=== PATIENT | male | born 1940 | race African-American/Black ===

== ENCOUNTER 2022-03-20 09:44 | Inpatient (IN) | payer MEDICARE, BC, OTHER ==
[~2022-03-20] VITALS: Ht 188 cm; Wt 88.0 kg
[2022-03-20] MEDS ORDERED: SODIUM CHLORIDE 0.9% 1000ML BAG (SEPSIS BOLUS) IV ONE (12:00)
[2022-03-20 13:02] LABS: BASOPHILS % 0.2 % (0.0-2.0); EOSINOPHILS % 0.2 % (0.0-5.0); HEMATOCRIT. 35.9 % (42.0-52.0); HEMOGLOBIN. 12.3 g/dL (14.0-18.0); LYMPHOCYTES % 9.6 % (20.0-50.0); MEAN CORPUSCULAR HEMOGLOBIN 30.5 pg (28.0-32.0); MEAN CORPUSCULAR VOLUME 88.9 fL (80.0-94.0); MEAN PLATELET VOLUME 9.4 fl (7.4-10.4); PLATELET 165 x1000/uL (130-400); RED BLOOD CELL COUNT 4.04 mill/uL (4.7-6.1); RED CELL DISTRIBUTION WIDTH 14.8 % (11.6-14.6)
[2022-03-20 13:51] LABS: INR 1.1; PROTHROMBIN TIME 11.7 sec (9.6-11.0)
[2022-03-20] MEDS ORDERED: ASPIRIN 81MG TABLET PO ONE (14:00)
[2022-03-20 15:55] LABS: CHLORIDE 107 mEq/L (98-107)
[2022-03-20] MEDS ORDERED: POTASSIUM CHLORIDE 20MEQ TABLET SR PO ONE (16:15)
[2022-03-20] MEDS ORDERED: ACETAMINOPHEN 325MG TABLET PO PRN (17:00)
[2022-03-20] MEDS ORDERED: ONDANSETRON HCL 4MG/2ML INJ IV PRN (17:00)
[2022-03-20] MEDS ORDERED: MAGNESIUM/ALUMINUM HYDROXIDE/SIMETHICONE 30ML UDC PO PRN (17:00)
[2022-03-20] MEDS ORDERED: CLONIDINE 0.1MG TABLET PO PRN (17:00)
[2022-03-20] MEDS ORDERED: HYDROCODONE/ACETAMINOPHEN 5/325MG TABLET PO PRN (17:00)
[2022-03-20 17:41] VITALS: BP 152/73
[2022-03-20] MEDS: ENOXAPARIN 40MG/0.4ML SYR SUBCUT SCH (18:00)
[2022-03-20] MEDS ORDERED: NALOXONE HCL 0.4MG/ML VIAL IV PRN (18:00)
[2022-03-20 18:02] VITALS: BP 152/73
[2022-03-20] MEDS ORDERED: AMLO10TA80 MT (18:07)
[2022-03-20] MEDS ORDERED: PRIM50TA5 MT (18:07)
[2022-03-20] MEDS ORDERED: MEMA1TAB2 PO (18:07)
[2022-03-20] MEDS ORDERED: RIVA1PAT9 TP (18:07)
[2022-03-20] MEDS ORDERED: QUET25TA36 MT (18:07)
[2022-03-20] MEDS ORDERED: CHOL400D7 MT (18:07)
[2022-03-20] MEDS ORDERED: TAMS-11 MT (18:07)
[2022-03-20] MEDS ORDERED: ATOR40TA70 MT (18:07)
[2022-03-20 19:16] LABS: CLARITY URINE CLEAR (CLEAR); COLOR URINE YELLOW (YELLOW); KETONES URINE 1+ (NEGATIVE); LEUKOCYTE ESTERASE URINE NEGATIVE (NEGATIVE); NITRITE URINE NEGATIVE (NEGATIVE); OCCULT BLOOD URINE 2+ (NEGATIVE); PH URINE 6.5 (4.5-8.0); PROTEIN URINE 1+ (NEGATIVE)
[2022-03-20 19:34] LABS: *AMPHETAMINES SCREEN URINE NEGATIVE (NEGATIVE); *BARBITURATES SCREEN URINE PRESUMTIVE POSITIVE (NEGATIVE); *BENZODIAZEPINES SCREEN URINE NEGATIVE (NEGATIVE); *COCAINE SCREEN URINE NEGATIVE (NEGATIVE); CANNABINOID URINE SCREEN NEGATIVE (NEGATIVE); METHADONE URINE SCREEN NEGATIVE (NEGATIVE); OPIATES URINE SCREEN NEGATIVE (NEGATIVE); PHENCYCLIDINE URINE SCREEN NEGATIVE (NEGATIVE)
[2022-03-20 20:00] VITALS: BP 141/69
[2022-03-21] VITALS (7 sets, daily range): BP systolic 116–156; BP diastolic 55–72
[2022-03-21 05:51] LABS: BASOPHILS % 0.2 % (0.0-2.0); HEMATOCRIT. 28.2 % (42.0-52.0); HEMOGLOBIN. 9.7 g/dL (14.0-18.0); LYMPHOCYTES % 14.7 % (20.0-50.0); MEAN CORPUSCULAR HEMOGLOBIN 30.2 pg (28.0-32.0); MEAN CORPUSCULAR VOLUME 87.9 fL (80.0-94.0); MEAN PLATELET VOLUME 9.2 fl (7.4-10.4); MONOCYTES % 10.5 % (2.0-8.0); NEUTROPHILS % 72.6 % (40.0-76.0); PLATELET 127 x1000/uL (130-400); RED BLOOD CELL COUNT 3.21 mill/uL (4.7-6.1); RED CELL DISTRIBUTION WIDTH 14.4 % (11.6-14.6)
[2022-03-21 05:58] LABS: CHLORIDE 108 mEq/L (98-107)
[2022-03-21] MEDS ORDERED: POTASSIUM CHLORIDE 20MEQ TABLET SR PO NR ×3 (06:15→16:00)
[2022-03-21] MEDS ORDERED: POTASSIUM CHLORIDE INJ 40 MEQ in DEXT 5% WATER 250 ML IV ONE (06:15)
[2022-03-21 06:21] LABS: HDL CHOLESTEROL 57 mg/dL (40-59); LDL CHOLESTEROL 43 mg/dL (5-100); PHOSPHORUS 2.6 mg/dL (2.5-4.9); T4 FREE 1.47 ng/dL (0.76-1.46)
[2022-03-21] MEDS ORDERED: KCL 20MEQ/100ML X 2 FOR TOTAL KCL 40MEQ/200ML IV SCH (06:30)
[2022-03-21] MEDS: OMEPRAZOLE 20MG CAPSULE EXTENDED RELEASE PO SCH (07:04)
[2022-03-21] MEDS: SODIUM CHLORIDE 0.45% 1,000 ML IV SCH ×2 (14:12→23:51)
[2022-03-21 16:20] LABS: VITAMIN B12 SERUM 431 pg/mL (211-911)
[2022-03-21] MEDS: ENOXAPARIN 40MG/0.4ML SYR SUBCUT SCH (16:23)
[2022-03-21] MEDS ORDERED: VANCOMYCIN 1,750 MG in DEXT 5% WATER 500 ML IV SCH (21:00)
[2022-03-22 00:12] VITALS: BP 157/77
[2022-03-22 04:12] VITALS: BP 166/113
[2022-03-22 06:22] LABS: BASOPHILS % 0.2 % (0.0-2.0); EOSINOPHILS % 1.9 % (0.0-5.0); HEMATOCRIT. 33.2 % (42.0-52.0); HEMOGLOBIN. 11.2 g/dL (14.0-18.0); LYMPHOCYTES % 12.8 % (20.0-50.0); MEAN CORPUSCULAR VOLUME 89.5 fL (80.0-94.0); MEAN PLATELET VOLUME 9.2 fl (7.4-10.4); MONOCYTES % 9.9 % (2.0-8.0); NEUTROPHILS % 75.2 % (40.0-76.0); PLATELET 149 x1000/uL (130-400); RED BLOOD CELL COUNT 3.71 mill/uL (4.7-6.1); RED CELL DISTRIBUTION WIDTH 14.5 % (11.6-14.6)
[2022-03-22] MEDS: OMEPRAZOLE 20MG CAPSULE EXTENDED RELEASE PO SCH (07:35)
[2022-03-22 08:00] VITALS: BP 141/73
[2022-03-22 08:21] LABS: CHLORIDE 105 mEq/L (98-107)
[2022-03-22] MEDS ORDERED: MAGNESIUM SULFATE 1GM/2ML VIAL IM ONE (09:45)
[2022-03-22] MEDS ORDERED: POTASSIUM CHLORIDE 20MEQ TABLET SR PO NR (09:48)
[2022-03-22] MEDS ORDERED: MAGNESIUM 1 G PREMIX 100 ML IV NR (10:30)
[2022-03-22] MEDS: VANCOMYCIN 1,000 MG in DEXT 5% WATER 250 ML IV SCH ×2 (10:54→21:45)
[2022-03-22 12:00] VITALS: BP 159/82
[2022-03-22] MEDS: SODIUM CHLORIDE 0.45% 1,000 ML IV SCH (13:25)
[2022-03-22 16:00] VITALS: BP 165/77
[2022-03-22 20:00] VITALS: BP 156/84
[2022-03-22] MEDS: ENOXAPARIN 40MG/0.4ML SYR SUBCUT SCH (21:45)
[2022-03-23] VITALS (9 sets, daily range): BP systolic 118–149; BP diastolic 61–98
[2022-03-23 01:43] LABS: T4 FREE 1.24 ng/dL (0.76-1.46)
[2022-03-23 03:12] LABS: FOLIC ACID (FOLATE) SERUM 6.2 ng/mL (>5.38)
[2022-03-23] MEDS: SODIUM CHLORIDE 0.45% 1,000 ML IV SCH ×2 (04:10→17:07)
[2022-03-23] MEDS: OMEPRAZOLE 20MG CAPSULE EXTENDED RELEASE PO SCH (06:36)
[2022-03-23 06:54] LABS: BASOPHILS % 0.3 % (0.0-2.0); EOSINOPHILS % 3.2 % (0.0-5.0); HEMATOCRIT. 33.3 % (42.0-52.0); HEMOGLOBIN. 11.4 g/dL (14.0-18.0); LYMPHOCYTES % 16.4 % (20.0-50.0); MEAN CORPUSCULAR HEMOGLOBIN 29.9 pg (28.0-32.0); MEAN CORPUSCULAR VOLUME 87.4 fL (80.0-94.0); MEAN PLATELET VOLUME 9.5 fl (7.4-10.4); MONOCYTES % 11.5 % (2.0-8.0); NEUTROPHILS % 68.6 % (40.0-76.0); PLATELET 184 x1000/uL (130-400); RED BLOOD CELL COUNT 3.82 mill/uL (4.7-6.1); RED CELL DISTRIBUTION WIDTH 14.2 % (11.6-14.6)
[2022-03-23] MEDS: VANCOMYCIN 1,000 MG in DEXT 5% WATER 250 ML IV SCH (12:08)
[2022-03-23 13:39] LABS: CHLORIDE 101 mEq/L (98-107)
[2022-03-23] MEDS: ENOXAPARIN 40MG/0.4ML SYR SUBCUT SCH (17:07)
[2022-03-23] MEDS: VANCOMYCIN 750MG PREMIX 150 ML IV SCH (22:46)
[2022-03-24] VITALS (11 sets, daily range): BP systolic 106–137; BP diastolic 47–70
[2022-03-24] MEDS: OMEPRAZOLE 20MG CAPSULE EXTENDED RELEASE PO SCH (06:46)
[2022-03-24] MEDS: SODIUM CHLORIDE 0.45% 1,000 ML IV SCH ×2 (06:47→17:36)
[2022-03-24 07:20] LABS: BASOPHILS % 0.3 % (0.0-2.0); EOSINOPHILS % 3.7 % (0.0-5.0); HEMATOCRIT. 28.7 % (42.0-52.0); LYMPHOCYTES % 14.6 % (20.0-50.0); MEAN CORPUSCULAR HEMOGLOBIN 30.2 pg (28.0-32.0); MEAN CORPUSCULAR VOLUME 86.9 fL (80.0-94.0); MEAN PLATELET VOLUME 9.9 fl (7.4-10.4); MONOCYTES % 13.2 % (2.0-8.0); NEUTROPHILS % 68.2 % (40.0-76.0); PLATELET 172 x1000/uL (130-400); RED CELL DISTRIBUTION WIDTH 14.2 % (11.6-14.6)
[2022-03-24 09:10] LABS: CHLORIDE 102 mEq/L (98-107)
[2022-03-24] MEDS ORDERED: POTASSIUM CHLORIDE 20MEQ TABLET SR PO NR (10:15)
[2022-03-24] MEDS: VANCOMYCIN 750MG PREMIX 150 ML IV SCH ×2 (11:53→23:36)
[2022-03-24] MEDS: ENOXAPARIN 40MG/0.4ML SYR SUBCUT SCH (17:35)
[2022-03-25 00:10] VITALS: BP 113/55
[2022-03-25 04:10] VITALS: BP 137/66
[2022-03-25] MEDS: OMEPRAZOLE 20MG CAPSULE EXTENDED RELEASE PO SCH (06:05)
[2022-03-25 07:10] LABS: BASOPHILS % 0.4 % (0.0-2.0); EOSINOPHILS % 2.6 % (0.0-5.0); HEMATOCRIT. 30.4 % (42.0-52.0); HEMOGLOBIN. 10.6 g/dL (14.0-18.0); LYMPHOCYTES % 15.6 % (20.0-50.0); MEAN CORPUSCULAR HEMOGLOBIN 30.6 pg (28.0-32.0); MEAN CORPUSCULAR VOLUME 87.4 fL (80.0-94.0); MEAN PLATELET VOLUME 9.2 fl (7.4-10.4); NEUTROPHILS % 67.4 % (40.0-76.0); PLATELET 190 x1000/uL (130-400); RED BLOOD CELL COUNT 3.47 mill/uL (4.7-6.1); RED CELL DISTRIBUTION WIDTH 14.1 % (11.6-14.6)
[2022-03-25 07:29] LABS: CHLORIDE 106 mEq/L (98-107)
[2022-03-25 08:00] VITALS: BP 148/67
[2022-03-25] MEDS: SODIUM CHLORIDE 0.45% 1,000 ML IV SCH ×2 (08:22→22:04)
[2022-03-25] MEDS ORDERED: POTASSIUM CHLORIDE 20MEQ TABLET SR PO NR (08:45)
[2022-03-25 11:24] VITALS: BP 167/78
[2022-03-25 15:36] VITALS: BP 134/68
[2022-03-25] MEDS: ENOXAPARIN 40MG/0.4ML SYR SUBCUT SCH (17:50)
[2022-03-25 20:00] VITALS: BP 131/64
[2022-03-25] MEDS ORDERED: VANCOMYCIN 1,000 MG in DEXT 5% WATER 250 ML IV SCH (23:00)
[2022-03-26] VITALS (9 sets, daily range): BP systolic 114–187; BP diastolic 62–82
[2022-03-26 07:17] LABS: BASOPHILS % 0.4 % (0.0-2.0); EOSINOPHILS % 2.1 % (0.0-5.0); LYMPHOCYTES % 12.2 % (20.0-50.0); MEAN CORPUSCULAR HEMOGLOBIN 30.2 pg (28.0-32.0); MEAN CORPUSCULAR VOLUME 87.2 fL (80.0-94.0); MEAN PLATELET VOLUME 9.4 fl (7.4-10.4); MONOCYTES % 13.5 % (2.0-8.0); NEUTROPHILS % 71.8 % (40.0-76.0); PLATELET 203 x1000/uL (130-400); RED BLOOD CELL COUNT 3.32 mill/uL (4.7-6.1); RED CELL DISTRIBUTION WIDTH 14.2 % (11.6-14.6)
[2022-03-26 07:34] LABS: CHLORIDE 107 mEq/L (98-107)
[2022-03-26] MEDS ORDERED: POTASSIUM CHLORIDE 20MEQ TABLET SR PO NR (08:45)
[2022-03-26] MEDS ORDERED: FAMOTIDINE 20MG TABLET PO SCH (09:00)
[2022-03-26] MEDS: SODIUM CHLORIDE 0.45% 1,000 ML IV SCH (10:45)
== END 2022-03-26 17:30 | DRG 91 ==
LOC: ER 09:44 → 3WST 15:15
PROVIDERS: ADMIT Family Medicine Adult Medicine; ATTEND Family Medicine Adult Medicine
DX: G92.8 Other toxic encephalopathy (principal); E43 Unspecified severe protein-calorie malnutrition; R78.81 Bacteremia; R62.7 Adult failure to thrive; E86.0 Dehydration; I10 Essential (primary) hypertension; F03.90 Unspecified dementia, unspecified severity, without behavioral disturbance, psychotic disturbance, mood disturbance, and anxiety; J44.9 Chronic obstructive pulmonary disease, unspecified; F32.A Depression, unspecified; D64.9 Anemia, unspecified; Z68.24 Body mass index [BMI] 24.0-24.9, adult; E83.41 Hypermagnesemia; R19.7 Diarrhea, unspecified; I25.10 Atherosclerotic heart disease of native coronary artery without angina pectoris; E87.6 Hypokalemia; E78.5 Hyperlipidemia, unspecified; E78.00 Pure hypercholesterolemia, unspecified; R26.89 Other abnormalities of gait and mobility
CPT/HCPCS: 36415; 70486; 70551; 71045; 80048; 80053; 80061; 80076; 80202; 80305; 81003; 82140; 82270; 82607; 82746; 83036; 83605; 83735; 83880; 84100; 84145; 84439; 84443; 84481; 84484; 85025; 85044; 87015; 87045; 87427; 87449; 87493; 89055; 93005; 93306; 93970; 97162; 97166; 97530; 99285; A6261; J1650; J3370; J3475; J7030; J7060